=== PATIENT | male | born 1975 | race Caucasian/White ===

== ENCOUNTER 2017-01-16 18:30 | Emergency (ER) | payer SELFPAY ==
--- NOTE | ~2017-01-16 | ER ---
PATIENT'S NAME: [facility] AGE: 41 Y [address] ROOM: [place] [address] LOCATION: [facility] ADMIT DATE: 01/16/2017 ER/Outpatient Report DISCHARGE DATE: 01/16/2017 FAMILY PHYSICIAN: Physician, Unknown ATTENDING PHYSICIAN: Dick Mast Time of Arrival: 1833 hours. Time of Evaluation: 1833 hours. CHIEF COMPLAINT: Cough. HISTORY OF PRESENT ILLNESS: The patient states that several family members are all positive for influenza B. He began having chills, body aches, and fever last night. He states his cough is productive of a clear phlegm. He has had bit of a sore throat and runny nose. Denies any chest discomfort. Denies any abdominal pain. Does get short of breath with the coughing episodes. ALLERGIES: NO KNOWN ALLERGIES. CURRENT MEDICATIONS: No current medications. PAST MEDICAL HISTORY: Benign. PAST SURGERIES: Negative. SOCIAL HISTORY: He smokes half pack per day and has for the last 20 years. Denies use of street drugs and alcohol. REVIEW OF SYSTEMS: Review of systems are all negative other than those mentioned in the HPI. PHYSICAL EXAMINATION: VITAL SIGNS: He states he is 6 feet tall; weight is 102.8 kg; blood pressure is 150/76; pulse of 90; respirations 16; temperature of 100.3, tympanic; O2 saturation was 94% on room air. GENERAL: He is awake, alert, and oriented x4. SKIN: [place], warm, and dry. RESPIRATIONS: Even and nonlabored. HEENT: TMs are dull. Nasal is boggy. Oropharynx is red posteriorly. NECK: Supple. No lymphadenopathy. PATIENT'S NAME: PA[facility]INO [facility] AGE: 41 Y [address] ROOM: [place] [address] LOCATION: [facility] ADMIT DATE: 01/16/2017 ER/Outpatient Report DISCHARGE DATE: 01/16/2017 FAMILY PHYSICIAN: Physician, Unknown ATTENDING PHYSICIAN: Dick Mast LUNGS: Lung sounds are clear throughout. HEART: Regular rate and rhythm. LABORATORY DATA AND X-RAYS: Throat was swabbed for strep and nose was swabbed for influenza. Strep screen is negative. Influenza A is negative. Influenza B is positive. IMPRESSION: Influenza B. PLAN: Home, rest, fluids. Tylenol and ibuprofen for fever and discomfort. Prescription was written for Tamiflu and the patient was given a note for work. He is to follow up with his primary provider if symptoms persist. Return to the ER as needed. He verbalized understanding. CASSIE MOE APRN FOR [employer] [facility]/dorene /[id number] d: 01/17/173 t: 01/17/17 1853, OUTPATIENT REPORT
== END 2017-01-16 19:20 | disposition disaster alternative care site (69) ==
LOC: GMED 18:30
DX: J10.1 Influenza due to other identified influenza virus with other respiratory manifestations (principal); F17.210 Nicotine dependence, cigarettes, uncomplicated

== ENCOUNTER 2017-05-15 22:38 | Emergency (ER) | payer SELFPAY ==
--- NOTE | ~2017-05-15 | ER ---
PATIENT'S NAME: [facility] AGE: 42 Y [address] ROOM: [place] [id number] LOCATION: [facility] ADMIT DATE: 05/15/2017 ER/Outpatient Report DISCHARGE DATE: 05/15/2017 FAMILY PHYSICIAN: PHYSICIAN, NO ATTENDING PHYSICIAN: Mracos Miller Admission date and time documented in medical record. I saw the patient at 2305 hours. CHIEF COMPLAINT: Nausea, vomiting, diarrhea, and abdominal cramping. HISTORY OF PRESENT ILLNESS: The patient is a 42-year-old male, who comes in with multiple episodes of nausea, vomiting, diarrhea accompanied with abdominal cramping. No blood in his vomitus or diarrhea. No urinary frequency, urgency, or dysuria. No back pain. No chest pain or shortness of breath. No lightheadedness, dizziness, syncope, or near syncope. No headache, eyes, ears, nose, throat, neck, or spine pain. No fall or trauma. No fever, chills, or sweats. No joint or muscle swelling, redness, or pain. No skin eruptions or rash. No neuro changes, psych issues, or endocrine problems. His symptomatology started at 0600 hours this morning. He is doing better tonight. HOME MEDICATIONS: None. ALLERGIES: NONE. SOCIAL HISTORY: The patient smokes half pack of cigarettes per day. Nondrinker. SIGNIFICANT PAST MEDICAL HISTORY: Tobacco abuse, otherwise negative. OPERATIONS: Right ankle surgery. REVIEW OF SYSTEMS: All systems reviewed by me are negative with exception of those discussed in the history of present illness. PHYSICAL EXAMINATION: VITAL SIGNS: Temperature 98 tympanic, pulse 79, respirations 16, blood pressure 130/86, and O2 saturation on room air is 94%. PATIENT'S NAME: [facility] AGE: 42 Y [address] ROOM: [place], [place] [address] LOCATION: [facility] ADMIT DATE: 05/15/2017 ER/Outpatient Report DISCHARGE DATE: 05/15/2017 FAMILY PHYSICIAN: PHYSICIAN, NO ATTENDING PHYSICIAN: Marcos Miller HEAD: Normocephalic. EYES, EARS, NOSE, THROAT: Clear. Mucous membranes moist. NECK: Negative. SPINE: Negative. LUNGS: Clear. HEART: Regular. ABDOMEN: Soft, nontender, and nondistended. Good bowel tones. No organomegaly or abnormal mass palpable. No CVA tenderness. EXTREMITIES: Intact. NEUROVASCULAR: Intact. SKIN: Clear. No skin eruptions or rash. IMPRESSION: Gastroenteritis with nausea, vomiting, and diarrhea. Etiology uncertain, most likely viral. PLAN: The patient dismissed from the emergency room home. Observation. Activity as tolerated. Clear liquid diet for 24 hours and advance diet as tolerated. Bentyl 20 mg 4 times a day #12, Zofran 4 mg ODT as needed for nausea and vomiting. Follow up with personal physician as needed. Discussion ensued with the patient concerning my findings and recommendations, he understands. MD DINESH WELCH/modl /[id number] d: 05/16/179 t: 05/16/17 1809, OUTPATIENT REPORT
== END 2017-05-15 23:25 | disposition disaster alternative care site (69) ==
LOC: GMED 22:38
DX: K52.9 Noninfective gastroenteritis and colitis, unspecified (principal); F17.210 Nicotine dependence, cigarettes, uncomplicated; Z98.890 Other specified postprocedural states